=== PATIENT | female | born 1995 | race Caucasian/White ===

== ENCOUNTER 2017-07-15 23:21 | Emergency (ER) | payer MEDICAID ==
[~2017-07-15] VITALS: Ht 154.9 cm; Wt 52.4 kg
[2017-07-15 23:24] VITALS: BP 113/73
== END 2017-07-16 00:03 | disposition home or self-care (01) ==
LOC: ED 23:50
DX: O26.891 Other specified pregnancy related conditions, first trimester (principal); Z3A.00 Weeks of gestation of pregnancy not specified; J02.9 Acute pharyngitis, unspecified; R05 Cough; R07.89 Other chest pain; Z77.22 Contact with and (suspected) exposure to environmental tobacco smoke (acute) (chronic)
CPT/HCPCS: 93005; 99283

== ENCOUNTER 2020-02-01 15:33 | Emergency (ER) | payer MEDICAID ==
[~2020-02-01] VITALS: Ht 154.9 cm; Wt 57.7 kg
[2020-02-01 16:07] VITALS: BP 125/71
[2020-02-01] MEDS ORDERED: ACETAMINOPHEN 650 MG/20.3 ML UDC PO ONE (16:30)
[2020-02-01] MEDS ORDERED: IBUPROFEN 200 MG TABLET PO ONE (16:30)
[2020-02-01] MEDS ORDERED: IBUPROFEN 600 MG TABLET ONE (16:32)
== END 2020-02-01 16:47 | disposition home or self-care (01) ==
LOC: ED 15:55
DX: J06.9 Acute upper respiratory infection, unspecified (principal); M94.0 Chondrocostal junction syndrome [Tietze]; R07.89 Other chest pain; R05 Cough
CPT/HCPCS: 71046; 99283